=== PATIENT | male | born 1955 | race Caucasian/White ===

== ENCOUNTER 2018-01-01 12:54 | Emergency (ER) | payer MEDICARE ==
--- NOTE | 2018-01-01 14:08 | ED Physician Documentation ---
PD HPI SKIN - Stated complaint Stated Complaint: BUMP ON BACK/PAINFUL - Chief complaint Chief Complaint: Wound - History obtained from History obtained from: Patient - History of Present Illness Timing - onset: How many months ago Timing - duration: Months (has had bump for 2 months but it has gotten red and painful with swelling the past few days.) Timing - details: Gradual onset, Still present Location: Back (upper right scapular area.) Quality / character: Painful, Discolored (red), Raised. No: Vesicular, Draining Contributing factors: No: Insect bite /sting, Recent illness Similar symptoms before: Has not had sx before Review of Systems Constitutional: denies: Fever, Chills, Myalgias Neurologic: denies: Focal weakness, Numbness PD PAST MEDICAL HISTORY - Past Medical History Past Medical History: Yes Cardiovascular: Congestive heart failure, Hypertension, High cholesterol, Coronary artery disease, Other - Past Surgical History Past Surgical History: Yes Cardiovascular: Coronary stent - Present Medications Home Medications: Ambulatory Orders Medication Instructions Recorded Confirmed Carvedilol [Coreg] 6.25 mg PO 01/01/18 Simvastatin [Zocor] 10 mg PO 01/01/18 Spironolactone 25 mg PO 01/01/18 01/01/18 Sulfamethox/Trimeth 800/160 1 each PO BID #20 tablet 01/01/18 [Bactrim Ds 800/160] - Allergies Allergies/Adverse Reactions: Allergies Allergy/AdvReac Type Severity Reaction Status Date / Time No Known Drug Allergies Allergy Verified 01/01/18 13:09 - Social History Does the pt smoke?: No Smoking Status: Former smoker Does the pt drink ETOH?: Yes ETOH Use: Liquor Does the pt have substance abuse?: No - Immunizations Immunizations are current?: Yes Immunizations: TDAP current <10years PD ED PE NORMAL - Vitals Vital signs reviewed: Yes - General General: Alert and oriented X 3, No acute distress, Well developed/nourished - Cardiac Cardiac: RRR, No murmur - Respiratory Respiratory: Clear bilaterally - Back Back: Other (right scapular area with rounded area of redness and swelling, tender with central fluctuance c/w abscess. No drainage. ) - Derm Derm: Normal color, Warm and dry - Neuro Neuro: Alert and oriented X 3, No motor deficit, Normal speech Results - Vitals Vitals: Oxygen O2 Source Room air - Labs Labs: Microbiology 01/01/18 14:30 Wound Culture - Final Back - Upper No growth Procedures - Abscess I&D (location) right upper back/scapular area Preparation: Lidocaine 1%, With epi Incision: Incised with scalpel, Purulent drainage, Irrigated, Culture obtained. No: Packed Other: Pt tolerated well, Dressing applied, Antibiotic prescribed PD MEDICAL DECISION MAKING - ED course Complexity details: considered differential, d/w patient - Sepsis Event Vital Signs: Oxygen O2 Source Room air Departure - Departure Disposition: 01 Home, Self Care Clinical Impression: Infected sebaceous cyst of skin Condition: Stable Record reviewed to determine appropriate education?: Yes Instructions: ED Abscess IandD Prescriptions: Sulfamethox/Trimeth 800/160 [Bactrim Ds 800/160] 1 each PO BID #20 tablet Comments: Drink lots of fluids. He can do warm moist towels to the area the infection to 3 times a day. Otherwise have it covered with dressing to absorb any drainage. It is okay to wash and shower. The whole should heal in on its own over several days to week. Bactrim twice daily for 7-10 days until the redness is completely resolved. At that point the infection should be gone. Subsequently you can have a primary care or joint terminal attack controller take out the collapsed cyst area to prevent recurrence. Alternatively could see if the infection ever comes back again and have it treated in the similar way as this. Discharge Date/Time: 01/01/18 14:53
[2018-01-01] MEDS ORDERED: SULFAMETH/TRIMETH DS 800/160 MG TABLET PO STA (14:37)
[2018-01-01 14:55] VITALS: BP 139/89
== END 2018-01-01 14:53 | disposition home or self-care (01) ==
LOC: ED 12:54
DX: L72.3 Sebaceous cyst (principal); I25.10 Atherosclerotic heart disease of native coronary artery without angina pectoris; E78.00 Pure hypercholesterolemia, unspecified; I11.0 Hypertensive heart disease with heart failure; I50.9 Heart failure, unspecified; Z95.5 Presence of coronary angioplasty implant and graft; Z87.891 Personal history of nicotine dependence
CPT/HCPCS: 10060; 87070; 87205; 99283; A9270

== ENCOUNTER 2021-12-19 16:16 | Emergency (ER) | payer MEDICARE ==
[2021-12-19 16:50] LABS: BASOPHILS # (AUTO) 0.1 10^3/uL (0.0-0.1); BASOPHILS % (AUTO) 0.8 %; EOSINOPHILS # (AUTO) 0.1 10^3/uL (0.0-0.7); EOSINOPHILS % (AUTO) 1.4 %; HCT - HEMATOCRIT 37.9 % (42.0-52.0); LYMPHOCYTES # (AUTO) 2.8 10^3/uL (1.5-3.5); LYMPHOCYTES % (AUTO) 33.8 %; MEAN CORPUSCULAR HEMOGLOBIN 31.7 pg (27.0-31.0); MEAN CORPUSCULAR HGB CONC 34.3 g/dL (32.0-36.0); MEAN CORPUSCULAR VOLUME 92.4 fL (80.0-94.0); MEAN PLATELET VOLUME 8.8 fL (7.4-11.4); MONOCYTES # (AUTO) 0.5 10^3/uL (0.0-1.0); MONOCYTES % (AUTO) 5.7 %; NEUTROPHILS # (AUTO) 4.8 10^3/uL (1.5-6.6); NEUTROPHILS % (AUTO) 57.8 %; PLT - PLATELET COUNT 231 10^3/uL (130-450); RED CELL DISTRIBUTION WIDTH 14.2 % (12.0-15.0); WHITE BLOOD COUNT 8.3 x10^3/uL (4.8-10.8)
--- NOTE | 2021-12-19 17:03 | ED Physician Documentation ---
History of Present Illness - Stated complaint Stated Complaint: CHEST PX - Chief complaint Chief Complaint: Cardiac - Additonal information Additional information: 66-year-old male presents emergency department for evaluation of 1 week exert ional stabbing chest pain. The patient hails from the [place] reports that 17 years ago he had a myocardial infarction in the [place] and he was stented. He has yearly follow-up with a [facility] in [place] and reports that he had a negative stress test in April 2021. 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 He has taken nitroglycerin 4 times without relief of pain. No fevers or cough. No radiation to the arm or jaw. Patient states that when he moves in certain positions it certainly hurts more. He is followed by [facility] in [place] Dr. Gregg Former smoker quitting in 1983. Meds: Coreg, chlorthialadone, Aldactone, aspirin, statin Review of Systems Constitutional: reports: Reviewed and negative Ears: reports: Reviewed and negative Nose: reports: Reviewed and negative Throat: reports: Reviewed and negative Cardiac: reports: Chest pain / pressure. denies: Palpitations, Pedal edema, Calf pain Respiratory: denies: Dyspnea, Cough GI: denies: Abdominal Pain, Nausea : reports: Reviewed and negative Skin: reports: Reviewed and negative Musculoskeletal: reports: Reviewed and negative PD PAST MEDICAL HISTORY - Past Medical History Cardiovascular: Congestive heart failure, Hypertension, High cholesterol, Coronary artery disease, Other - Past Surgical History Past Surgical History: Yes Cardiovascular: Coronary stent - Present Medications Home Medications: Ambulatory Orders Medication Instructions Recorded Confirmed Carvedilol [Coreg] 6.25 mg PO 01/01/18 Simvastatin [Zocor] 10 mg PO 01/01/18 Spironolactone 25 mg PO 01/01/18 01/01/18 Sulfamethox/Trimeth 800/160 1 each PO BID #20 tablet 01/01/18 [Bactrim Ds 800/160] - Allergies Allergies/Adverse Reactions: Allergies Allergy/AdvReac Type Severity Reaction Status Date / Time No Known Drug Allergies Allergy Verified 12/19/21 16:33 - Social History Does the pt smoke?: No Smoking Status: Former smoker Does the pt drink ETOH?: Yes Does the pt have substance abuse?: No - Immunizations Immunizations are current?: Yes Immunizations: TDAP current <10years PD ED PE NORMAL - General General: Alert and oriented X 3, No acute distress, Well developed/nourished - HEENT HEENT: Atraumatic, Moist mucous membranes - Neck Neck: Supple, no meningeal sign - Cardiac Cardiac: RRR, No murmur - Respiratory Respiratory: No respiratory distress, Clear bilaterally - Abdomen Abdomen: Normal bowel sounds, Soft, Non tender - Back Back: No CVA TTP, No spinal TTP - Derm Derm: Normal color, Warm and dry, No rash - Extremities Extremities: No deformity, No tenderness to palpate, Normal ROM s pain - Neuro Neuro: Alert and oriented X 3, budget director 2-12 intact Eye Opening: Spontaneous Motor: Obeys Commands Verbal: Oriented GCS Score: 15 Results - Vitals Vitals: Vital Signs - 24 hr 12/19/21 12/19/21 12/19/21 16:28 17:08 18:18 Temperature 36.0 C L Heart Rate 68 74 70 Respiratory 18 17 10 L Rate Blood Pressure 117/70 128/74 105/70 O2 Saturation 97 95 96 Oxygen O2 Source Room air - EKG (time done) 1624 Rate: Rate (enter#) (70) Rhythm: NSR [place]: Normal Intervals: Normal AK. No: Prolonged QT QRS: Low voltage Ischemia: Normal ST segments Compare to prior EKG: Old EKG unavailable Computer interpretation: Agree with computer - Labs Labs: Laboratory Tests 12/19/21 12/19/21 12/19/21 16:42 16:42 16:42 WBC 8.3 RBC 4.10 L Hgb 13.0 L Hct 37.9 L MCV 92.4 MCH 31.7 H MCHC 34.3 RDW 14.2 Plt Count 231 MPV 8.8 Neut # (Auto) 4.8 Lymph # (Auto) 2.8 [place] # (Auto) 0.5 Eos # (Auto) 0.1 Baso # (Auto) 0.1 Absolute Nucleated RBC 0.00 Nucleated RBC % 0.0 Sodium 139 Potassium 3.0 L Chloride 104 Carbon Dioxide 25 Anion Gap 10.0 BUN 15 Creatinine 1.0 Estimated GFR (MDRD) 75 L Glucose 155 H Calcium 9.5 Total Bilirubin 0.3 AST 26 ALT 26 Alkaline Phosphatase 56 Troponin I High Sens 2.7 B-Natriuretic Peptide Total Protein 6.6 L Albumin 4.3 Globulin 2.3 Albumin/Globulin Ratio 1.9 Lipase 27 12/19/21 16:42 WBC RBC Hgb Hct MCV MCH MCHC RDW Plt Count MPV Neut # (Auto) Lymph # (Auto) [place] # (Auto) Eos # (Auto) Baso # (Auto) Absolute Nucleated RBC Nucleated RBC % Sodium Potassium Chloride Carbon Dioxide Anion Gap BUN Creatinine Estimated GFR (MDRD) Glucose Calcium Total Bilirubin AST ALT Alkaline Phosphatase Troponin I High Sens B-Natriuretic Peptide 46 Total Protein Albumin Globulin Albumin/Globulin Ratio Lipase - Rads (name of study) cxr Radiology: Final report received (No acute cardiopulmonary process) PD MEDICAL DECISION MAKING - ED course Complexity details: reviewed results, re-evaluated patient, considered differential, d/w patient ED course: 66-year-old male who has a history of coronary artery disease status post stenting 17 years ago comes to the emergency department with 1 week of intermittent chest pain. 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 He has taken nitroglycerin without relief of pain but often finds the pain is worse in some types of movement. He states to me that he feels like he is just overdone it. There is no dyspnea. He reports peers remarkably well his screening EKG is nonischemic and sinus. His screening labs including a high-sensitivity troponin are negative. Given his age and risk factors he certainly needs cardiac Reevaluation though he reports to me that he had a negative stress test about 6 months ago in [facility]. He is advised to call his [facility] to arrange that follow-up. He has his usual doses of medications and no changes are necessary today. If his symptoms worsen he will return immediately to the ER. Departure - Departure Disposition: Home, Self Care Clinical Impression: Chest pain Qualifiers: Chest pain type: unspecified Qualified Code(s): R07.9 - Chest pain, unspecified Condition: Stable Record reviewed to determine appropriate education?: Yes Instructions: ED Chest Pain Atypical Unkn Cause Comments: Selwyn winchester were seen today in the emergency department because you have been having some chest pain for about the last week while doing a lot of labor at your house. Here in the emergency department your EKG is essentially normal. Your chest x-ray is normal. Your screening labs including a lab to check for heart attack is normal. You report to me that you had a negative stress test with your [facility] in [place] in April. I would like you to call his office on Monday to discuss this ED visit to see if they would prefer to see you sooner. You can continue your other usual medications. If at any point you develop worsening chest pain, have leg swelling, severe shortness of breath then please return immediately to the ER
[2021-12-19] MEDS ORDERED: NITROGLYCERIN SL 0.4 MG TABLET SL STA (17:04)
[2021-12-19 17:05] LABS: ALBUMIN 4.3 g/dL (3.2-5.5); ALBUMIN/GLOBULIN RATIO 1.9 (1.0-2.2); BILIRUBIN,TOTAL 0.3 mg/dL (0.2-1.0); CALCIUM 9.5 mg/dL (8.5-10.3); TOTAL PROTEIN 6.6 g/dL (6.7-8.2)
--- NOTE | 2021-12-19 17:51 | XRAY Report ---
PROCEDURE: Chest 1 View X-Ray INDICATIONS: Chest Pain TECHNIQUE: One view of the chest was acquired. COMPARISON: None FINDINGS: Surgical changes and devices: None. Lungs and pleura: No pleural effusions or pneumothorax. Lungs are clear. Mediastinum: Mediastinal contours appear normal. Heart size is normal. Bones and chest wall: No suspicious bony lesions. Degenerative changes without acute osseous abnorma lity. Overlying soft tissues appear unremarkable. IMPRESSION: No evidence of an acute cardiopulmonary abnormality. Reviewed by: Paul Mccord DO on 12/19/2021 4:50 PM TANK Approved by: Paul Mccord DO on 12/19/2021 4:50 PM TANK Station ID: [id number]
[2021-12-19 18:18] VITALS: BP 105/70
== END 2021-12-19 18:37 | disposition home or self-care (01) ==
LOC: ED 16:16
DX: R07.89 Other chest pain (principal); I11.0 Hypertensive heart disease with heart failure; I50.9 Heart failure, unspecified; Z87.891 Personal history of nicotine dependence
CPT/HCPCS: 36415; 80053; 83690; 83880; 84484; 85025; 85610; 93005; 99284